=== PATIENT | male | born 1975 | race Caucasian/White ===

== ENCOUNTER 2022-09-26 13:52 | Emergency (ER) | payer OTHER ==
[~2022-09-26] VITALS: Ht 185.4 cm; Wt 95.3 kg
--- NOTE | 2022-09-26 14:11 | NUR ---
POST REDUCTION XRAY DONE OF LT KNEE AT BEDSIDE.
--- NOTE | 2022-09-26 14:11 | NUR ---
PT SEEN AND EVALUATED BY DR YOUNG.
[2022-09-26] MEDS ORDERED: IBUP-1955 PO (14:41)
[2022-09-26] MEDS ORDERED: MORPHINE SULFATE 4 MG/1 ML DISP.SYRIN IV ONE (15:00)
--- NOTE | 2022-09-26 15:04 | NUR ---
IV removed. Catheter intact and site benign. Pressure and 4x4 gauze applied to site. No bleeding noted.
--- NOTE | 2022-09-26 16:01 | NUR ---
Patient discharged to home in stable condition. Written and verbal after care instructions given. Patient verbalizes understanding of instructions. Stressed follow up or return to ER for worsening s/s.
[2022-09-26 16:57] VITALS: BP 114/64
== END 2022-09-26 16:05 | disposition home or self-care (01) ==
LOC: ER 13:52
DX: S83.005A Unspecified dislocation of left patella, initial encounter (principal); Z79.1 Long term (current) use of non-steroidal anti-inflammatories (NSAID); W18.39XA Other fall on same level, initial encounter; Y93.89 Activity, other specified; Y92.89 Other specified places as the place of occurrence of the external cause; Y99.8 Other external cause status
CPT/HCPCS: A4663